=== PATIENT | female | born 1945 | race Caucasian/White ===

== ENCOUNTER 2016-08-30 13:55 | Inpatient (IN) | payer MEDICARE ==
[~2016-08-30] VITALS: Ht 162.6 cm; Wt 100.6 kg
[~2016-08-30 13:55] MED LIST: ALLO300T PO; ASPI325T80 PO; CHOL200024 PO; CYCL-259 PO; HYDR-3144 PO; LEVO75TA PO; OMEP-110 PO
[2016-08-30 14:32] LABS: HEMOGLOBIN 13.2 g/dL (11.7-16.4)
[2016-08-30 14:39] LABS: BLOOD UREA NITROGEN 21 mg/dL (7-18)
[2016-08-30 14:48] LABS: IS PT STATUS REG ER OR PRE ER? YES
[2016-08-30] MEDS ORDERED: ONDANSETRON 2MG/ML, 2ML IVPush ONE (15:00)
[2016-08-30] MEDS ORDERED: MORPHINE SULFATE 4 MG/ML, 1ML IVPush PRN ×2 (15:00→16:30)
[2016-08-30] MEDS ORDERED: MORPHINE SULFATE 4 MG/ML, 1ML ONE (15:05)
[2016-08-30] MEDS ORDERED: ONDANSETRON 2MG/ML, 2ML ONE (15:06)
[2016-08-30] MEDS ORDERED: NITROGLYCERIN SINGLE TAB 0.4 MG SL ONE (15:43)
[2016-08-30] MEDS: NITROGLYCERIN SINGLE TAB 0.4 MG SL PRN ×3 (15:44→15:54)
[2016-08-30] MEDS ORDERED: METF500T27 PO (16:06)
[2016-08-30] MEDS ORDERED: ELQUIS PO (16:06)
[2016-08-30] MEDS ORDERED: DOCUSATE 100 MG CAPSULE PO PRN (16:30)
[2016-08-30] MEDS ORDERED: HYDROcodone/APAP 5/325 TABLET PO PRN (16:30)
[2016-08-30] MEDS ORDERED: LABETALOL 5MG/ML, 20ML IV PRN (16:30)
[2016-08-30] MEDS ORDERED: ACETAMINOPHEN 325 MG TABLET PO PRN (16:30)
[2016-08-30] MEDS ORDERED: HYDROcodone/APAP 10/325 MG TABLET PO PRN (16:30)
[2016-08-30] MEDS ORDERED: POLYETHYLENE GLYCOL 17 GM PACKET PO PRN (16:30)
[2016-08-30] MEDS ORDERED: BISACODYL 10 MG SUPP PR PRN (16:30)
[2016-08-30] MEDS ORDERED: ONDANSETRON 2MG/ML, 2ML IVP PRN (16:30)
[2016-08-30 16:56] VITALS: BP 148/74
[2016-08-30] MEDS ORDERED: OMNIPAQUE 350 MG/ML, 100ML BOTTLE ONE (18:19)
[2016-08-30 19:30] VITALS: BP 127/75
[2016-08-30 19:30] LABS: IS PT STATUS REG ER OR PRE ER? NO
[2016-08-30] MEDS ORDERED: MAGNESIUM SULFATE PMX 2GM/50ML 50 ML IV ONE (20:00)
[2016-08-30] MEDS: APIXABAN 5 MG TABLET PO SCH (21:27)
[2016-08-30] MEDS: SODIUM CHLORIDE FLUSH 10ML SYR IVF SCH (21:28)
[2016-08-30 21:41] VITALS: BP 117/74
[2016-08-30] MEDS: INSULIN REGULAR 100 UNITS/ML, 3ML VIAL SQ-INSULIN SCH (22:39)
[2016-08-31 01:18] LABS: IS PT STATUS REG ER OR PRE ER? NO
[2016-08-31 03:23] VITALS: BP 130/82
[2016-08-31 05:36] LABS: HEMOGLOBIN 12.1 g/dL (11.7-16.4)
[2016-08-31 05:37] LABS: BLOOD UREA NITROGEN 18 mg/dL (7-18)
[2016-08-31] MEDS ORDERED: LEVOTHYROXINE 75 MCG TABLET PO SCH (06:00)
[2016-08-31] MEDS: INSULIN REGULAR 100 UNITS/ML, 3ML VIAL SQ-INSULIN SCH ×2 (07:00→11:00)
[2016-08-31 07:48] VITALS: BP 140/84
[2016-08-31] MEDS ORDERED: REGADENOSON 0.4 MG/5 ML SYRINGE ONE (08:06)
[2016-08-31] MEDS ORDERED: ALLOPURINOL 300 MG TABLET PO SCH (09:00)
[2016-08-31] MEDS ORDERED: CHOLECALCIFEROL 1,000 UNIT TABLET PO SCH (09:00)
[2016-08-31] MEDS ORDERED: CYCLOBENZAPRINE 10 MG TABLET PO SCH (09:00)
[2016-08-31] MEDS: SODIUM CHLORIDE FLUSH 10ML SYR IVF SCH (10:08)
[2016-08-31] MEDS: APIXABAN 5 MG TABLET PO SCH (10:08)
[2016-08-31 13:21] VITALS: BP_SYST 135; BP_SYST 137; BP_SYST 92; BP_DIAS 60; BP_DIAS 83
[2016-08-31 13:34] VITALS: BP 150/93
== END 2016-08-31 14:20 | disposition home or self-care (01) | DRG 205 ==
LOC: ED 15:35 → EDIP 16:14 → 5SO 16:40 → DCLOUNGE 08-31 14:00
PROVIDERS: ADMIT Hospitalist
DX: M94.0 Chondrocostal junction syndrome [Tietze] (principal); N17.0 Acute kidney failure with tubular necrosis; D68.59 Other primary thrombophilia; M10.9 Gout, unspecified; E11.65 Type 2 diabetes mellitus with hyperglycemia; Z96.642 Presence of left artificial hip joint; D72.829 Elevated white blood cell count, unspecified; E03.9 Hypothyroidism, unspecified; M54.9 Dorsalgia, unspecified; G89.29 Other chronic pain; I73.9 Peripheral vascular disease, unspecified; Z66 Do not resuscitate; Z82.49 Family history of ischemic heart disease and other diseases of the circulatory system; Z86.718 Personal history of other venous thrombosis and embolism; Z86.73 Personal history of transient ischemic attack (TIA), and cerebral infarction without residual deficits; Z87.891 Personal history of nicotine dependence; Z79.84 Long term (current) use of oral hypoglycemic drugs; Z83.3 Family history of diabetes mellitus; Z90.710 Acquired absence of both cervix and uterus; R09.1 Pleurisy
CPT/HCPCS: 36415; 71010; 71275; 78452; 80048; 80061; 82040; 82962; 83735; 84443; 84484; 85025; 93005; 93017; 96374; 96375; J1815; J2405; J2785; Q9967; A9502; C9898; J3475

== ENCOUNTER → 2017-07-13 | Outpatient (CLI) | payer MEDICARE ==
[~2017-07-13] MED LIST changes: +APIX5TAB PO; +ELQUIS PO; +GABA300C10 PO; -HYDR-3144 PO; +HYDR-3245 PO; +METF500T27 PO; +OMEP10CA4 PO
[2017-07-13 14:47] LABS: MD NO
[2017-07-13 15:06] LABS: ANION GAP 9 mmol/L (5-15); CALCIUM 9.7 mg/dL (8.5-10.1); CHLORIDE 107 mmol/L (98-107); CREATININE 0.96 mg/dL (0.55-1.02)
[2017-07-13 15:08] LABS: BASOPHILS # (AUTO) 0.08 x10^3/uL (0-0.1); BASOPHILS % (AUTO) 1 % (0-1); EOSINOPHILS # (AUTO) 0.26 x10^3/uL (0-0.4); EOSINOPHILS % (AUTO) 3 % (1-7); LYMPHOCYTES # (AUTO) 3.03 x10^3/uL (1-3.4); LYMPHOCYTES % (AUTO) 36 % (22-44); MEAN CORPUSCULAR HEMOGLOBIN 29.6 pg (27.0-34.8); MEAN CORPUSCULAR HGB CONC 33.4 g/dL (32.4-35.8); MEAN CORPUSCULAR VOLUME 88.7 fL (80-100); MEAN PLATELET VOLUME 8.5 fL (7.4-10.4); MONOCYTES # (AUTO) 0.62 x10^3/uL (0.2-0.8); MONOCYTES % (AUTO) 7 % (2-9); NEUTROPHILS # (AUTO) 4.36 x10^3/uL (1.8-6.8); NEUTROPHILS % (AUTO) 52 % (42-75); PLATELET COUNT 293 x10^3/uL (130-400); RED BLOOD COUNT 4.46 x10^6/uL (3.82-5.3); RED CELL DISTRIBUTION WIDTH 16.1 % (9.6-15.2)
== END | disposition home or self-care (01) ==
LOC: STAR 13:55
PROVIDERS: ATTEND Surgery
DX: Z01.818 Encounter for other preprocedural examination (principal)
CPT/HCPCS: 36415; 80048; 85025

== ENCOUNTER 2017-07-21 12:14 | Day surgery (SDC) | payer MEDICARE ==
[~2017-07-21] VITALS: Ht 162.6 cm; Wt 95.6 kg
[2017-07-21 12:44] VITALS: BP 127/85
[2017-07-21] MEDS ORDERED: LACTATED RINGERS 1,000 ML IV SCH (12:47)
[2017-07-21] MEDS ORDERED: LIDOCAINE 2%, 20ML ONE (13:05)
[2017-07-21] MEDS ORDERED: NITROGLYCERIN 5 MG/ML, 10ML ONE (13:12)
[2017-07-21] MEDS ORDERED: FENTANYL PF 100 MCG/2ML ONE ×2 (13:12)
[2017-07-21] MEDS ORDERED: MIDAZOLAM 1 MG/ML, 5ML ONE (13:12)
[2017-07-21] MEDS ORDERED: FLUMAZENIL 0.1 MG/1 ML, 5ML ONE (13:12)
[2017-07-21] MEDS ORDERED: NALOXONE 1 MG/ML, 2ML ONE (13:13)
[2017-07-21] MEDS ORDERED: HEPARIN 1,000 UNITS/ML, 10ML ONE (13:13)
[2017-07-21] MEDS ORDERED: PROTAMINE SULFATE 10 MG/ML, 25ML ONE (13:13)
[2017-07-21] MEDS ORDERED: VISIPAQUE 270 MG/ML, 150ML BOTTLE ONE (14:30)
[2017-07-21] MEDS ORDERED: SODIUM CHLORIDE 0.9% 1,000 ML IV SCH (14:46)
== END 2017-07-21 18:00 | disposition home or self-care (01) ==
LOC: OUT 12:14
PROVIDERS: ATTEND Surgery
DX: I70.211 Atherosclerosis of native arteries of extremities with intermittent claudication, right leg (principal); I10 Essential (primary) hypertension; E11.9 Type 2 diabetes mellitus without complications; I25.10 Atherosclerotic heart disease of native coronary artery without angina pectoris; E78.00 Pure hypercholesterolemia, unspecified; E66.9 Obesity, unspecified; E78.5 Hyperlipidemia, unspecified; Z87.39 Personal history of other diseases of the musculoskeletal system and connective tissue; Z90.710 Acquired absence of both cervix and uterus; Z98.890 Other specified postprocedural states; Z96.642 Presence of left artificial hip joint
CPT/HCPCS: 37221; 37236; 75630; 82962; 99156; 99157; C1725; C1751; C1769; C1876; C1894; J1644; J2250; J3010; J3490; Q9966; J2720; J2310

== ENCOUNTER 2018-07-27 22:25 | Observation (INO) | payer MEDICARE ==
[~2018-07-27] VITALS: Ht 157.5 cm; Wt 73.1 kg
--- NOTE | 2018-07-27 22:30 | NUR ---
pt biba for syncope, report taken from EMS. pt reports headache, dizziness and diaphoresis precipitated syncopal episode.pt has had this happen twice in last 2 weeks. ekg taken on arrival. all montiors in place. call light in reach. awaiting orders at this time.
--- NOTE | 2018-07-27 23:30 | NUR ---
pt resting on gurney, resps even and unlabored, nsr on security monitor with no ectopy. nacho.
[2018-07-28] VITALS (8 sets, daily range): BP systolic 101–163; BP diastolic 66–91
--- NOTE | 2018-07-28 00:01 | NUR ---
PT INSTRUCTED TO PROVIDE CLEAN CATCH UA, PT UP TO BATHROOM, GAIT STEADY. REPORT GIVEN TO AJ CONDON AT BEDSIDE.
[2018-07-28 00:06] LABS: ALANINE AMINOTRANSFERASE 19 U/L (12-78); ALBUMIN 4.2 g/dL (3.4-5.0); ANION GAP 6 mmol/L (5-15); CHLORIDE 108 mmol/L (98-107); CREATININE 1.02 mg/dL (0.55-1.02); MEAN CORPUSCULAR VOLUME 90.7 fL (80-100); PLATELET COUNT 258 x10^3/uL (130-400); RED BLOOD COUNT 5.07 x10^6/uL (3.82-5.3); RED CELL DISTRIBUTION WIDTH 15.4 % (9.6-15.2)
[2018-07-28 00:07] LABS: MD YES
[2018-07-28] MEDS ORDERED: Jardiance (00:09)
[2018-07-28 00:10] LABS: ALKALINE PHOSPHATASE 90 U/L (45-117); TOTAL PROTEIN 7.8 g/dL (6.4-8.2); TROPONIN I < 0.015 ng/mL (0.000-0.045)
[2018-07-28] MEDS ORDERED: CLOP75TA52 PO (00:10)
[2018-07-28] MEDS ORDERED: levothyroxine (00:10)
[2018-07-28] MEDS ORDERED: carvedilol (00:12)
[2018-07-28] MEDS ORDERED: allopurinol (00:13)
--- NOTE | 2018-07-28 00:16 | NUR ---
CLARISSA RN: PT RESTING IN ROOM. UA SENT. NO ACUTE DISTRESS NOTED. CALL LIGHT IN PLACE. WILL CONTINUE TO MONITOR.
[2018-07-28 00:34] LABS: BASOS#(MANUAL) 0.11 x10^3/uL (0-0.1); BASOS% (MANUAL) 1 % (0-1); EOS#(MANUAL) 0.11 x10^3/uL (0.0-0.4); EOS% (MANUAL) 1 % (1-7); LYMPH#(MANUAL) 1.96 x10^3/uL (1-3.4); LYMPHS% (MANUAL) 18 % (22-44); MONOS#(MANUAL) 0.65 x10^3/uL (0.3-2.7); MONOS% (MANUAL) 6 % (2-9); SEG#(MANUAL) 8.07 x10^3/uL (1.8-6.8); SEGS% (MANUAL) 74 % (42-75)
[2018-07-28 00:35] LABS: <PLATELET ESTIMATE> ADEQUATE; <RBC MORPHOLOGY> NORMAL
[2018-07-28 00:36] LABS: <PLT MORPHOLOGY> NORMAL PLT MORPH
--- NOTE | 2018-07-28 00:52 | NUR ---
REPORT TO GRADY ROCHA FOR ROOM 402
[2018-07-28 00:57] LABS: CULTURE INDICATED? NO; MICROSCOPIC NOT IND
[2018-07-28] MEDS ORDERED: SODIUM CHLORIDE FLUSH 10ML SYR IVF PRN (01:00)
[2018-07-28] MEDS ORDERED: BISACODYL 10 MG SUPP PR PRN (02:30)
[2018-07-28] MEDS ORDERED: morphine SULFATE 10 MG/ML, 1ML IVPush PRN (02:30)
[2018-07-28] MEDS ORDERED: GLUCAGON 1 MG IM PRN (02:30)
[2018-07-28] MEDS ORDERED: ACETAMINOPHEN 325 MG TABLET PO PRN (02:30)
[2018-07-28] MEDS ORDERED: HYDROcodone/APAP 5/325 TABLET PO PRN (02:30)
[2018-07-28] MEDS ORDERED: IBUPROFEN 600 MG TABLET PO PRN (02:30)
[2018-07-28] MEDS ORDERED: ENALAPRILAT 1.25 MG/ML, 2ML IVPush PRN (02:30)
[2018-07-28] MEDS ORDERED: POLYETHYLENE GLYCOL 17 GM PACKET PO PRN (02:30)
[2018-07-28] MEDS ORDERED: DEXTROSE 4 GM TAB.CHEW PO PRN (02:30)
[2018-07-28] MEDS ORDERED: DOCUSATE 100 MG CAPSULE PO PRN (02:30)
[2018-07-28] MEDS ORDERED: DEXTROSE 50%, 50ML SYRINGE IVPush PRN (02:30)
[2018-07-28 05:20] LABS: TROPONIN I < 0.015 ng/mL (0.000-0.045)
[2018-07-28] MEDS: INSULIN LISPRO 100 UNITS/ML, PEN SQ-INSULIN SCH ×4 (07:38→20:35)
[2018-07-28] MEDS ORDERED: EVOL140P SQ (07:42)
[2018-07-28] MEDS: CLOPIDOGREL 75 MG TABLET PO SCH (09:38)
[2018-07-28] MEDS: SODIUM CHLORIDE FLUSH 10ML SYR IVF SCH ×2 (16:55→20:35)
[2018-07-29 00:37] VITALS: BP 116/69
[2018-07-29 04:30] VITALS: BP 135/75
[2018-07-29 04:32] VITALS: BP 110/73
[2018-07-29 04:33] VITALS: BP 108/74
[2018-07-29 05:33] LABS: BASOPHILS # (AUTO) 0.05 x10^3/uL (0-0.1); BASOPHILS % (AUTO) 1 % (0-1); EOSINOPHILS # (AUTO) 0.13 x10^3/uL (0-0.4); EOSINOPHILS % (AUTO) 2 % (1-7); LYMPHOCYTES # (AUTO) 2.71 x10^3/uL (1-3.4); LYMPHOCYTES % (AUTO) 33 % (22-44); MD NO; MEAN CORPUSCULAR HEMOGLOBIN 29.8 pg (27.0-34.8); MEAN CORPUSCULAR HGB CONC 32.8 g/dL (32.4-35.8); MEAN PLATELET VOLUME 8.9 fL (7.4-10.4); MONOCYTES # (AUTO) 0.62 x10^3/uL (0.2-0.8); MONOCYTES % (AUTO) 8 % (2-9); NEUTROPHILS # (AUTO) 4.62 x10^3/uL (1.8-6.8); NEUTROPHILS % (AUTO) 57 % (42-75); PLATELET COUNT 284 x10^3/uL (130-400); RED BLOOD COUNT 4.71 x10^6/uL (3.82-5.3); RED CELL DISTRIBUTION WIDTH 15.5 % (9.6-15.2)
[2018-07-29 05:41] LABS: ANION GAP 8 mmol/L (5-15); CALCIUM 9.4 mg/dL (8.5-10.1); CHLORIDE 108 mmol/L (98-107)
[2018-07-29 05:42] LABS: CREATININE 0.84 mg/dL (0.55-1.02)
[2018-07-29 07:45] VITALS: BP 139/76
[2018-07-29] MEDS: INSULIN LISPRO 100 UNITS/ML, PEN SQ-INSULIN SCH ×2 (09:06→12:15)
[2018-07-29] MEDS: CLOPIDOGREL 75 MG TABLET PO SCH (09:10)
[2018-07-29] MEDS: SODIUM CHLORIDE FLUSH 10ML SYR IVF SCH (09:10)
== END 2018-07-29 15:39 | disposition home or self-care (01) ==
LOC: ED 07-28 00:46 → INTOOBSV 07-28 00:50 → EDIP 07-28 00:50 → 4WST 07-28 01:21
PROVIDERS: ADMIT Family Medicine; ATTEND Family Medicine
DX: R55 Syncope and collapse (principal); R51 Headache; R42 Dizziness and giddiness; E11.51 Type 2 diabetes mellitus with diabetic peripheral angiopathy without gangrene; I11.0 Hypertensive heart disease with heart failure; I50.9 Heart failure, unspecified; E03.9 Hypothyroidism, unspecified; M10.9 Gout, unspecified; G89.29 Other chronic pain; W18.39XA Other fall on same level, initial encounter; I34.0 Nonrheumatic mitral (valve) insufficiency; I65.23 Occlusion and stenosis of bilateral carotid arteries; Z82.49 Family history of ischemic heart disease and other diseases of the circulatory system; Z86.73 Personal history of transient ischemic attack (TIA), and cerebral infarction without residual deficits; Z79.02 Long term (current) use of antithrombotics/antiplatelets; Z83.3 Family history of diabetes mellitus; Z87.891 Personal history of nicotine dependence; Z88.6 Allergy status to analgesic agent; Z88.8 Allergy status to other drugs, medicaments and biological substances; Y93.89 Activity, other specified; Y99.0 Civilian activity done for income or pay; Y92.59 Other trade areas as the place of occurrence of the external cause
CPT/HCPCS: 0399T; 36415; 70450; 71046; 80048; 80053; 81003; 82962; 83036; 83880; 84443; 84484; 85025; 93005; 93306; 93880; 97161; 97165; 99284; G0378; 99285

== ENCOUNTER → 2019-07-15 | Outpatient (CLI) | payer MEDICARE ==
[~2019-07-15] MED LIST changes: +CLOP75TA52 PO; +EVOL140P3 SQ; +Jardiance; -OMEP10CA4 PO; +OMEP10CA5 PO; +allopurinol; +carvedilol; +levothyroxine
== END | disposition home or self-care (01) ==
LOC: CFH 13:43
PROVIDERS: ATTEND Family Medicine
DX: Z12.31 Encounter for screening mammogram for malignant neoplasm of breast (principal); N64.89 Other specified disorders of breast; M85.88 Other specified disorders of bone density and structure, other site; Z13.820 Encounter for screening for osteoporosis; Z98.82 Breast implant status; Z78.0 Asymptomatic menopausal state
CPT/HCPCS: 77063; 77067; 77080

== ENCOUNTER 2019-09-13 12:26 | Outpatient (CLI) | payer MEDICARE | END 2019-09-13 23:59 | disposition home or self-care (01) | LOC: CFH 12:26 | PROVIDERS: ATTEND Family Medicine | DX: N63.20 Unspecified lump in the left breast, unspecified quadrant (principal); R92.2 Inconclusive mammogram | CPT/HCPCS: 76642; 77065; G0279 ==

== ENCOUNTER → 2020-10-07 | Outpatient (CLI) | payer MEDICARE ==
[~2020-10-07] MED LIST changes: -CYCL-259 PO; +CYCL10TA2 PO; -HYDR-3245 PO; +HYDR1TAB53 PO
== END | disposition home or self-care (01) ==
LOC: CFH 12:52
PROVIDERS: ATTEND Family Medicine
DX: Z12.31 Encounter for screening mammogram for malignant neoplasm of breast (principal)
CPT/HCPCS: 77063; 77067